=== PATIENT | male | born 1995 | race Hispanic/Latino ===

== ENCOUNTER 2021-02-23 01:35 | Emergency (ER) | payer OTHER | END 2021-02-23 02:45 | disposition left against medical advice (07) | LOC: FSED 01:49 | DX: R05.9 Cough, unspecified (principal) ==

== ENCOUNTER → 2022-01-11 | Outpatient (CLI) | payer OTHER | LOC: CT 12:55 | PROVIDERS: ATTEND Family Medicine | DX: S60.222D Contusion of left hand, subsequent encounter (principal); M79.89 Other specified soft tissue disorders ==